=== PATIENT | male | born 2000 | race Caucasian/White ===

== ENCOUNTER 2019-05-09 21:30 | Emergency (ER) | payer BC ==
[~2019-05-09] VITALS: Ht 182.9 cm; Wt 86.2 kg
[2019-05-09 22:11] LABS: ABSOLUTE NEUTROPHILS 7.2 thou/uL (1.4-8.2); BASOPHILS 0.5 % (0.0-2.0); EOSINOPHILS 1.5 % (0.0-3.0); HEMATOCRIT 46.9 % (42.0-52.0); HEMOGLOBIN 15.7 gm/dL (14.0-18.0); LYMPHOCYTES 23.9 % (24.0-44.0); MCH 27.2 pg (26.0-34.0); MCHC 33.6 g/dL (28.0-37.0); MONOCYTES 6.1 % (1.0-8.0); PLATELET COUNT 325 thou/uL (150-400); RBC 5.78 mil/uL (4.50-6.00); RDW 13.1 % (10.5-14.5); WBC 10.6 thou/uL (4.0-11.0)
[2019-05-09 22:22] LABS: CALCIUM 9.6 mg/dL (8.5-10.1); POTASSIUM 3.7 mmol/L (3.5-5.1)
[2019-05-09 22:41] LABS: MAGNESIUM 2.1 mg/dL (1.8-2.4)
[2019-05-09 23:33] VITALS: BP 129/79
--- NOTE | 2019-05-11 08:38 | EKG ---
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: [facility] : 2000 Requested By: Ruslan Vivar Order Number: [id number] MD: Norman Garrido Measurements Intervals [place] Rate: 99 P: 69 NM: 192 QRS: 33 QRSD: 96 T: 49 QT: 337 QTc: 433 Interpretive Statements Sinus rhythm Normal tracing No previous ECG available for comparison Electronically Signed On 05-11-2019 8:37:40 TRIPLE VALVE MECHANIC by Norman Garrido [email or web address] <ELECTRONICALLY SIGNED> By: Norman Garrido MD, FAC 05/11/19 0837 51 51 Norman Garrido MD, [facility] /EPI
== END 2019-05-09 23:30 | disposition home or self-care (01) ==
LOC: ER 21:30
PROVIDERS: Emergency Medicine
DX: R00.0 Tachycardia, unspecified (principal)

== ENCOUNTER 2019-05-13 14:01 | Emergency (ER) | payer BC ==
[~2019-05-13] VITALS: Ht 182.9 cm; Wt 86.2 kg
[2019-05-13] MEDS ORDERED: PREVACID30 MG PO (15:13)
[2019-05-13 16:41] LABS: ABSOLUTE NEUTROPHILS 5.3 thou/uL (1.4-8.2); BASOPHILS 0.7 % (0.0-2.0); EOSINOPHILS 1.9 % (0.0-3.0); HEMATOCRIT 48.5 % (42.0-52.0); HEMOGLOBIN 16.4 gm/dL (14.0-18.0); LYMPHOCYTES 27.6 % (24.0-44.0); MCH 27.2 pg (26.0-34.0); MCHC 33.8 g/dL (28.0-37.0); MCV 80.5 fL (80.0-100.0); MONOCYTES 8.2 % (1.0-8.0); PLATELET COUNT 318 thou/uL (150-400); POLYS 61.6 % (36.0-66.0); RBC 6.03 mil/uL (4.50-6.00); RDW 13.2 % (10.5-14.5); WBC 8.7 thou/uL (4.0-11.0)
[2019-05-13 16:47] LABS: ANION GAP 10 mmol/L (7-16); BUN 12 mg/dL (7-18); CALCIUM 8.9 mg/dL (8.5-10.1); CHLORIDE 99 mmol/L (98-107); CO2 28 mmol/L (21-32); CREATININE 0.9 mg/dL (0.7-1.3); GLUCOSE 86 mg/dL (74-106); POTASSIUM 3.8 mmol/L (3.5-5.1); SODIUM 137 mmol/L (136-145)
[2019-05-13 16:56] LABS: ALBUMIN 4.5 g/dL (3.4-5.0); SGOT 14 U/L (15-37); SGPT 26 U/L (30-65); TOTAL BILIRUBIN 2.7 mg/dL (<0.1-1.0); TROPONIN-I <0.06 ng/mL (<0.06)
[2019-05-13 17:26] VITALS: BP 128/89
--- NOTE | 2019-05-15 09:09 | EKG ---
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: [facility] : 2000 Requested By: Edda Neville Order Number: [id number] MD: Norman Garrido Measurements Intervals [place] Rate: 94 P: -18 [place]: 161 QRS: 9 QRSD: 98 T: 3 QT: 328 QTc: 411 Interpretive Statements Sinus rhythm RSR' in V1 or V2, probably normal variant Borderline T abnormalities, inferior leads Compared to ECG 05/09/2019 21:52:58 Left ventricular hypertrophy now present Electronically Signed On 05-15-2019 9:08:11 CANAL SUPERINTENDENT by Norman Garrido [email or web address] <ELECTRONICALLY SIGNED> By: Norman Garrido MD, [facility] 05/15/19 0908 140 02 Norman Garrido MD, [facility] /EPI
--- NOTE | 2019-05-15 09:18 | EKG ---
[facility] [place] [address] [place] [address] ELECTROCARDIOGRAM REPORT Name: TOMAS CARLISLE Room #: DEP 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 05/15/19 0917 1659 1659 Norman Garrido MD, [facility] /EPI
== END 2019-05-13 17:40 | disposition home or self-care (01) ==
LOC: ER 14:01
PROVIDERS: Physician Assistant
DX: R07.89 Other chest pain (principal); R00.2 Palpitations